=== PATIENT | female | born 1950 | race Caucasian/White ===

== ENCOUNTER 2016-11-13 17:25 | Inpatient (IN) | payer MEDICARE, MEDICAID ==
--- NOTE | 2016-11-13 18:06 | ED Physician Chart ---
Chief Complaint/HPI - Patient Information Date Seen:: 11/13/16 Time Seen:: 17:50 Chief Complaint:: abdominal pain and vomiting History of Present Illness:: patient developed mid abdominal pain this pm and vomited three times. No diarrhea. Also complains of shortness of breath and chest burning sensation. Historian:: Patient, EMS Review of Systems - Review of Systems General/Constitutional: No fever, No chills Skin: No skin lesions Head: No headache Eyes: No loss of vision ENT: No earache Neck: No neck pain Cardio Vascular: Chest pain Pulmonary: SOB GI: Nausea, Vomiting, Pain G/U: No dysuria Musculoskeletal: No bone or joint pain Endocrine: No polyuria Psychiatric: Prior psych history Past Medical History - Past Medical History Past Medical History: PUD/GERD, Other (chronic pain syndrome; PUD) Family History: HTN Social History: Care Facility Surgical History: Appendectomy, Cholecystectomy, Hysterectomy, Hernia, other Psychiatricy History: None Medication: Reviewed Family Medical History - Family Member Mother Hx Family Hypertension: Yes Physical Exam - Physical Examination General/Constitutional: No distress Head: Atraumatic Eyes: Lids, conjuctiva normal, PERRL Skin: Nl inspection, No rash ENMT: External ears, nose nl, TM canals nl Neck: No nuchal rigidity Respiratory: Nl effort/Exclusion, Clear to Auscultation, No Wheeze/Rhonchi/Rales Cardio Vascular: RRR GI: No organomegaly, No hernia, Normal BS's Other GI comments:: upper abdominal tenderness with rebound : No CVA tenderness Extremities: Normal digits & nails Neuro/Psych: Alert/oriented Misc: Normal back Labs/Radiology/EKG Results - Lab Results Results: Laboratory Results - last 24 hr 11/13/16 11/13/16 11/13/16 18:12 18:25 18:25 WBC RBC Hgb Hct MCV MCH MCHC Differential RDW Plt Count MPV Neutrophils % Lymphocytes % Monocytes % Eosinophils % Basophils % Sodium 135 L Potassium 4.3 Chloride 108 H Carbon Dioxide 24.5 Anion Gap 6.8 L BUN 20 Creatinine 0.7 Est GFR ( Amer) > 60.0 Est GFR (Non-Af Amer) > 60.0 BUN/Creatinine Ratio 28.6 Glucose 112 H Calcium 9.7 Troponin I < 0.01 L Lipase 33 Urine Source RANDOM Urine Color YELLOW Urine Clarity CLEAR Urine pH 7.0 Ur Specific [place] 1.020 Urine Protein NEGATIVE Urine Glucose (UA) NEGATIVE Urine Ketones NEGATIVE Urine Blood NEGATIVE Urine Nitrate NEGATIVE Urine Bilirubin NEGATIVE Urine Urobilinogen 0.2 Ur Leukocyte Esterase NEGATIVE Urine RBC NONE SEEN Urine WBC NONE SEEN Ur Epithelial Cells NONE SEEN Urine Bacteria NONE SEEN 11/13/16 19:27 WBC 7.8 RBC 4.29 Hgb 11.8 Hct 34.4 L MCV 80.2 L MCH 27.5 MCHC Differential 34.3 RDW 14.5 Plt Count 251 MPV 7.2 Neutrophils % 74.0 Lymphocytes % 17.6 L Monocytes % 6.0 Eosinophils % 1.8 Basophils % 0.6 Sodium Potassium Chloride Carbon Dioxide Anion Gap BUN Creatinine Est GFR ( Amer) Est GFR (Non-Af Amer) BUN/Creatinine Ratio Glucose Calcium Troponin I Lipase Urine Source Urine Color Urine Clarity Urine pH Ur Specific [place] Urine Protein Urine Glucose (UA) Urine Ketones Urine Blood Urine Nitrate Urine Bilirubin Urine Urobilinogen Ur Leukocyte Esterase Urine RBC Urine WBC Ur Epithelial Cells Urine Bacteria - Radiology Results Results: CXR: elevation of left hemidiaphragm; no infiltrate; CT abdomen and pelvis: negative Assessment - Assessment General Assessment: on re-examination still had upper abdominal tenderness with rebound ED Septic Shock - . Is Septic Shock (SBP<90, OR Lactate>4 mmol\L) present?: No Reassessment (Disposition) - Reassessment Reassessment Condition:: Unchanged - Diagnosis Diagnosis:: Gastritis - Patient Disposition Admitted to:: Med/Surg Spoke to:: Bandar Cormier Admitting Medical Physician:: Bandar Cormier
[2016-11-13 18:48] LABS: ANION GAP 6.8 (7.0-16.0); BUN - UREA NITROGEN 20 mg/dL (7-25); BUN/CREATININE RATIO 28.6; CALCIUM SERUM 9.7 mg/dL (8.6-10.3); CARBON DIOXIDE 24.5 mEq/L (21.0-31.0); CHLORIDE 108 mEq/L (98-107); CREATININE - SERUM 0.7 mg/dL (0.6-1.2); GLUCOSE 112 mg/dL (70-105); LIPASE 33 U/L (11-82); POTASSIUM SERUM 4.3 mEq/L (3.5-5.1); SODIUM SERUM 135 mEq/L (136-145)
[2016-11-13 19:31] LABS: % BASOPHILS 0.6 % (0.0-2.0); % EOSINOPHILS 1.8 % (0.0-5.0); % LYMPHOCYTES 17.6 % (20.0-50.0); HEMATOCRIT 34.4 % (35.0-45.0); HEMOGLOBIN 11.8 gm/dL (11.7-15.5); MEAN CELL VOLUME 80.2 fl (81-100); MEAN CORPUSCULAR HEMOGLOBIN 27.5 pg (27.0-31.0); MEAN CORPUSCULAR HGB CONC 34.3 pg (28.0-36.0); MEAN PLATELET VOLUME 7.2 fl; NEUTROPHILE ABSOLUTE 5.8 Th/cmm (1.8-8.0); PLATELET COUNT 251 Th/cmm (150-400); RED BLOOD COUNT 4.29 Mil/cmm (3.80-5.10); RED CELL DISTRIBUTION WIDTH 14.5 % (11.5-20.0); WHITE BLOOD COUNT 7.8 Th/cmm (4.8-10.8)
[2016-11-13 19:40] LABS: URINE BACTERIA NONE SEEN /hpf (NONE SEEN); URINE BILIRUBIN NEGATIVE (NEGATIVE); URINE BLOOD NEGATIVE (NEGATIVE); URINE COLOR YELLOW; URINE EPITHELIAL CELLS NONE SEEN /lpf (FEW); URINE GLUCOSE (UA) NEGATIVE (NEGATIVE); URINE KETONE NEGATIVE (NEGATIVE); URINE PROTEIN NEGATIVE (NEGATIVE); URINE RBC NONE SEEN /hpf (0-5); URINE UROBILINOGEN 0.2 E.U./dL (0.2 - 1.0); URINE WBC NONE SEEN /hpf (0-5)
[2016-11-13] MEDS ORDERED: Morphine Sulfate 2 mg/mL 1mL Syr ONE (21:33)
[2016-11-13] MEDS: Morphine Sulfate 2 mg/mL 1mL Syr IVP PRN (21:37)
--- NOTE | 2016-11-13 22:24 | Admit Criteria Form ---
Admit Criteria Forms - Admit Criteria Diagnosis: GASTRITIS AND DUODENITIS Clinical Indications for Admission to Inpatient Care (Place 'X' for any and all applicable criteria): Admission is indicated for ANY ONE of the following (1)(2)(3): [X]I. Inpatient admission required rather than observation care (Also use Gastritis and Duodenitis: Observation Care as appropriate) because of ANY ONE of the following: [ ]a) Caustic ingestion related injury that requires acute inpatient care (5) [X]b) Vomiting that is severe or persistent (6) [ ]c) Volume depletion that is severe or persistent [X]d) Severe pain requiring acute inpatient management [ ]e) Severe electrolyte abnormalities requiring inpatient care [ ]f) High fever or infection requiring inpatient admission indicated by ANY ONE of the following(7)(8): [ ]A. Appropriate outpatient or observation care antimicrobial treatment unavailable, not effective, not feasible [ ]B. Temp. > 104.9 F (oral) [ ]C. Temp. >103.1F (oral) or < 96.8 F (rectal) that does not respond to all emergency treatment measures [ ]D. Documented bacteremia [ ]g) IV fluid to replace significant ongoing losses (greater than 3 L/m2 per day)(12)(13) [ ]h) Parenteral nutrition regimen that must be implemented on inpatient basis [ ]i) Other condition, treatment or monitoring requiring inpatient admission [ ]II. Hemodynamic instability [ ]III. Suspected gastric outlet obstruction [ ]IV. Suspected perforation of viscus [ ]V. Peritoneal signs Extended stay beyond goal length of stay may be needed for (2)(3): [ ]a) Hemorrhagic gastritis or duodenitis (Also use Gastrointestinal Bleeding, Upper care as appropriate) (20) [ ]b) Severe caustic injury [ ]c) Gastroparesis(23) [ ]d) Surgical intervention (22) [ ]e) Older patient (patient older than 65 years of age) The original [facility] content created by [employer] has been revised. The portions of the content which have been revised are identified through the use of italic text or in bold, and [facility] has neither reviewed nor approved the modified material.All other unmodified content is copyright [facility]. Please see references footnoted in the original [facility] edition 2016 Admit Criteria Met?: Yes
[2016-11-14] MEDS ORDERED: Maalox 30 mL Cup PO PRN ×2 (00:17→00:20)
[2016-11-14] MEDS ORDERED: Magnesium Hydroxide (MOM) 30 mL UDC PO PRN (00:17)
[2016-11-14] MEDS ORDERED: Lactulose 10 Gm/15 mL 30mL UDC PO PRN (00:17)
[2016-11-14] MEDS: Morphine Sulfate 2 mg/mL 1mL Syr IVP PRN ×4 (05:35→20:37)
[2016-11-14 07:05] LABS: % BASOPHILS 0.3 % (0.0-2.0); % EOSINOPHILS 2.5 % (0.0-5.0); % LYMPHOCYTES 21.3 % (20.0-50.0); % MONOCYTES 7.1 % (2.0-10.0); % NEUTROPHILS 68.8 % (40.0-80.0); HEMATOCRIT 33.5 % (35.0-45.0); HEMOGLOBIN 11.3 gm/dL (11.7-15.5); MEAN CELL VOLUME 80.8 fl (81-100); MEAN CORPUSCULAR HEMOGLOBIN 27.1 pg (27.0-31.0); MEAN CORPUSCULAR HGB CONC 33.6 pg (28.0-36.0); MEAN PLATELET VOLUME 7.4 fl; NEUTROPHILE ABSOLUTE 4.5 Th/cmm (1.8-8.0); PLATELET COUNT 232 Th/cmm (150-400); RED BLOOD COUNT 4.15 Mil/cmm (3.80-5.10); RED CELL DISTRIBUTION WIDTH 14.4 % (11.5-20.0); WHITE BLOOD COUNT 6.6 Th/cmm (4.8-10.8)
[2016-11-14 07:16] LABS: ALB/GLOB RATIO 1.2 (1.0-1.8); ALKALINE PHOSPHATASE 88 U/L (34-104); ANION GAP 12.7 (7.0-16.0); BILIRUBIN,TOTAL 0.2 mg/dL (0.3-1.0); BUN - UREA NITROGEN 18 mg/dL (7-25); BUN/CREATININE RATIO 25.7; CARBON DIOXIDE 30.2 mEq/L (21.0-31.0); CHLORIDE 103 mEq/L (98-107); CREATININE - SERUM 0.7 mg/dL (0.6-1.2); GLUCOSE 106 mg/dL (70-105); POTASSIUM SERUM 3.9 mEq/L (3.5-5.1); SGOT 13 U/L (13-39); SGPT/ALT 17 U/L (7-52); SODIUM SERUM 142 mEq/L (136-145)
[2016-11-14 09:26] LABS: TSH 4.28 uIU/ml (0.34-5.60)
[2016-11-14] MEDS: Albuterol Nebulizer 2.5mg/3mL IH SCH ×3 (09:54→17:10)
[2016-11-14] MEDS: Ipratropium Neb 0.5 mg/2.5 mL UD IH SCH ×3 (09:54→17:11)
[2016-11-14] MEDS ORDERED: Pneumococcal Vaccine 0.5 mL Vial IM ONE (11:00)
[2016-11-14 11:20] LABS: INR 0.98 (0.5-1.4); PROTHROMBIN TIME (TEST) 9.7 SECONDS (9.5-11.5)
--- NOTE | 2016-11-14 11:41 | Diagnostic Imaging Report ---
CT scan abdomen and pelvis without intravenous contrast HISTORY: Pain Total DLP equals 739 CTDI equals 14.0 Axial sections were obtained from the xiphoid process down to the pubic symphysis. The liver exhibits a normal size and contour. Surgical clips are seen in the jose hepatis region consistent with prior cholecystectomy. Pneumobilia is seen. Findings consistent with surgical sequelae. The spleen is somewhat generous in size. No focal abdomen is seen within the pancreas. No focal renal lesions. No hydronephrosis. Stool-filled mildly dilated ascending colon is noted. No abnormal masses or fluid collections seen within the pelvis. Artifact associated with surgical clips noted in the right and left iliac regions of the pelvis. IMPRESSION: 1. No acute abnormalities 2. Mildly distended stool-filled ascending colon 3. Findings of a prior cholecystectomy and additional surgical changes.
--- NOTE | 2016-11-14 11:53 | Diagnostic Imaging Report ---
Portable chest x-ray HISTORY: Pain The heart is enlarged. No focal pulmonary processes. No hilar or mediastinal abnormalities. IMPRESSION: 1. Cardiomegaly 2. No acute focal pulmonary processes
[2016-11-14] MEDS: D5-0.45NS 1,000 ML IV SCH ×2 (16:03)
--- NOTE | 2016-11-14 16:52 | History & Physical ---
CHIEF COMPLAINT: Abdominal pain and vomiting. HISTORY OF PRESENT ILLNESS: This is a 66-year-old female with history of GERD, obesity, anemia, depression, and psych disorder was admitted from nursing facility secondary to abdominal pain started about 3 days ago. It started about 2 months ago, worse in the last 3 days. The patient also related some vomiting. The patient evaluated in the ER and then admitted for further management. PAST MEDICAL HISTORY: As mentioned in history present illness. PAST SURGICAL HISTORY: Status post gallbladder, appendix, tonsils and hernia surgery. ALLERGIES: TYLENOL, ____ PENICILLIN, ____. MEDICATIONS: The patient on albuterol, Atrovent, Motrin, Zyprexa, Zofran, ____ Zoloft. FAMILY HISTORY: Noncontributory. SOCIAL HISTORY: The patient ____, no alcohol, no intravenous drug use. The patient , no children. REVIEW OF SYSTEMS: GENERAL: Complains of not feeling well. HEENT: No blurred vision, pain. LUNGS: ____ COPD or asthma. HEART: Denies hypertension or coronary artery disease. ABDOMEN: As mentioned in history present illness. NEUROLOGIC: No headache or seizures. PSYCHIATRIC: As stated above. PHYSICAL EXAMINATION: VITAL SIGNS: Blood pressure 106/59, respirations 17, pulse 82, temperature is ____. GENERAL: Elderly female, morbidly obese. NECK: Supple. No mass. LUNGS: Equal breath sounds, few rhonchi. HEART: Regular rhythm. No appreciable murmurs. ABDOMEN: Soft, globular, ____. Nontender on the deep palpation. NEUROLOGIC: Limited. Moving 4 extremities. Gait not ____. LABORATORY DATA: WBC 6.6, hemoglobin 11.3, platelets ____. Sodium 134, potassium 4.3, BUN 20, creatinine 0.7, glucose 112. ____, albumin 3.6 and urine negative. ASSESSMENT AND PLAN: Intractable vomiting, abdominal pain, anemia, gastroesophageal reflux disease, obesity, gait instability, schizoaffective disorder, low albumin, hypokalemia. We will continue patient on IV hydration. We will correct electrolyte abnormalities. Continue proton pump inhibitor. ID has been consulted. We will provide the patient adequate pain control. We will review the patient's CT of the abdomen. We will continue to follow. JOB# [id number]
[2016-11-14] MEDS ORDERED: Lidocaine 2% Gel 5 mL TP ONE (17:40)
--- NOTE | 2016-11-14 18:43 | Operative Report ---
PROCEDURE: Esophagogastroduodenoscopy with biopsy. PREPROCEDURE DIAGNOSIS: Abdominal pain with chest pain. POSTPROCEDURE DIAGNOSES: 1. Mild antral gastritis, status post biopsy and CLOtest. 2. Normal duodenum, status post biopsies, rule out celiac disease. INDICATION: A 66-year-old obese female admitted for atypical chest pain and epigastric pain, undergoing an upper endoscopy for further evaluation. CONSENT: Informed consent was obtained from the patient prior to procedure after explanation of risks, benefit and alternative including but not limited to infection, bleeding, perforation and . SEDATION: Monitored anesthesia care per Dr. Zhang. DESCRIPTION OF PROCEDURE AND FINDINGS: The patient was placed as an inpatient in the GI Suite of [facility]. The patient was kept in a left lateral decubitus position. Adequate sedation was achieved with above medications. An Olympus diagnostic upper endoscope was advanced via the patient's mouth and into the esophagus. The esophagus appeared normal with no evidence of esophagitis, stricture or mass lesions. The Z-line was normal appearing at 36 cm from the gums. Retroflexion in the stomach revealed no GE junction masses or varices. No hiatal hernia was identified. Mild gastritis with some bile reflux was identified in the antrum. Biopsies were obtained from antrum and mid body, submitted for CLOtest as well as pathology. The pyloric channel and duodenum up to this portion appeared normal. Random biopsies were obtained from second portion to rule out celiac disease. The scope was then withdrawn from the patient. The patient tolerated the procedure well, no complications are anticipated. RECOMMENDATIONS: 1. Follow up biopsy results. 2. Protonix and Carafate. 3. Antiemetics as needed. 4. Diet as tolerated. Thank you, Dr. Bandar Cormier, for involving us in the care of your patient. If you have any further questions, please call us. JOB# [id number]
--- NOTE | 2016-11-14 20:48 | Consultation ---
TYPE OF CONSULTATION: GASTROENTEROLOGY REQUESTING PHYSICIAN: Bandar Cormier M.D. REASON FOR CONSULTATION: Abdominal pain. HISTORY OF PRESENT ILLNESS: This is a 66-year-old obese female with previous cholecystectomy, self-proclaimed IBS/irritable bowel syndrome, obesity, mild anemia, depression, and previous endoscopic workup with endoscopy and colonoscopy per her 2 years ago showing IBS. The patient was admitted for a few-day history of epigastric and atypical chest pain. PAST MEDICAL HISTORY: As above. MEDICATIONS: Maalox, albuterol, Klonopin, heparin subcutaneously, Motrin, Atrovent, lactulose p.r.n., milk of magnesia p.r.n., morphine p.r.n., Nitrostat p.r.n., Zyprexa, Zofran, Protonix, Zoloft, and Ambien. ALLERGIES: ACETAMINOPHEN, HALDOL, PENICILLIN AND COMPAZINE. SOCIAL HISTORY: No known tobacco or alcohol or drugs. FAMILY HISTORY: Noncontributory. REVIEW OF SYSTEMS: A comprehensive 12-point review of systems was conducted and is only positive for those signs or symptoms present in the history of present illness. PHYSICAL EXAMINATION: VITAL SIGNS: Temperature 98.3, blood pressure is 117/64, pulse of 81, respirations 20, and O2 sat is 97%. GENERAL: The patient is well-developed, well-nourished female in no acute distress. HEENT: Sclerae are anicteric. Oropharynx is clear. CARDIOVASCULAR: Regular rate and rhythm. LUNGS: Clear to auscultation bilaterally. ABDOMEN: Soft. Mild epigastric tenderness to palpation without rebound or guarding. No hepatosplenomegaly is appreciated. EXTREMITIES: No clubbing, cyanosis, or edema. RECTAL: Deferred. LABORATORY DATA AND IMAGING: WBC 6.6, hemoglobin 11.3, and platelet count is 232,000. Chemistries including liver enzymes and lipase are normal. Urinalysis is clear. CT of the abdomen and pelvis done yesterday showed no acute abnormalities, mildly distended stool-filled ascending colon, and previous cholecystectomy. ASSESSMENT: 1. Epigastric abdominal pain and atypical chest pain, rule out gastroesophageal reflux disease, peptic ulcer disease, gastritis versus less likely constipation or colitis. 2. History of irritable bowel syndrome. 3. History of cholecystectomy. 4. History of obesity. 5. Mild anemia. 6. History of depression. 7. History of endoscopic workup 2 years ago. RECOMMENDATIONS: 1. Upper endoscopy to follow. 2. Protonix. 3. Antiemetics. 4. Diet as tolerated. Thank you, Dr. Bandar Cormier for involving us in the care of your patient. If you have any further questions, please call us. JOB# [id number] [id number]
[2016-11-15] MEDS: Morphine Sulfate 2 mg/mL 1mL Syr IVP PRN ×5 (01:55→20:18)
[2016-11-15] MEDS: D5-0.45NS 1,000 ML IV SCH ×2 (05:34→21:30)
[2016-11-15 07:15] LABS: % LYMPHOCYTES 18.2 % (20.0-50.0); % MONOCYTES 7.8 % (2.0-10.0); HEMATOCRIT 31.9 % (35.0-45.0); HEMOGLOBIN 10.8 gm/dL (11.7-15.5); MEAN CELL VOLUME 80.3 fl (81-100); MEAN CORPUSCULAR HEMOGLOBIN 27.2 pg (27.0-31.0); MEAN CORPUSCULAR HGB CONC 33.9 pg (28.0-36.0); MEAN PLATELET VOLUME 6.9 fl; NEUTROPHILE ABSOLUTE 4.4 Th/cmm (1.8-8.0); PLATELET COUNT 209 Th/cmm (150-400); RED BLOOD COUNT 3.97 Mil/cmm (3.80-5.10); RED CELL DISTRIBUTION WIDTH 14.5 % (11.5-20.0); WHITE BLOOD COUNT 6.3 Th/cmm (4.8-10.8)
[2016-11-15 07:45] LABS: ALB/GLOB RATIO 1.2 (1.0-1.8); ALKALINE PHOSPHATASE 83 U/L (34-104); ANION GAP 6.1 (7.0-16.0); BILIRUBIN,TOTAL 0.3 mg/dL (0.3-1.0); BUN - UREA NITROGEN 17 mg/dL (7-25); BUN/CREATININE RATIO 24.3; CALCIUM SERUM 8.6 mg/dL (8.6-10.3); CARBON DIOXIDE 29.8 mEq/L (21.0-31.0); CHLORIDE 107 mEq/L (98-107); CREATININE - SERUM 0.7 mg/dL (0.6-1.2); GLUCOSE 107 mg/dL (70-105); MAGNESIUM 2.2 mg/dL (1.9-2.7); POTASSIUM SERUM 3.9 mEq/L (3.5-5.1); SGOT 12 U/L (13-39); SGPT/ALT 16 U/L (7-52); SODIUM SERUM 139 mEq/L (136-145)
--- NOTE | 2016-11-15 08:22 | General Progress Note ---
Subjective - Review of Systems Service Date: 11/15/16 Subjective: STILL SOME ABD PAIN. CHRISTIAN SOME ORAL DIET. Objective - Results Result Diagrams: 11/15/16 06:58 11/15/16 06:58 Recent Labs: Laboratory Last Values WBC 6.3 Th/cmm (4.8-10.8) 11/15/16 06:58 RBC 3.97 Mil/cmm (3.80-5.10) 11/15/16 06:58 Hgb 10.8 gm/dL (11.7-15.5) L 11/15/16 06:58 Hct 31.9 % (35.0-45.0) L 11/15/16 06:58 MCV 80.3 fl (81-100) L 11/15/16 06:58 MCH 27.2 pg (27.0-31.0) 11/15/16 06:58 MCHC Differential 33.9 pg (28.0-36.0) 11/15/16 06:58 RDW 14.5 % (11.5-20.0) 11/15/16 06:58 Plt Count 209 Th/cmm (150-400) 11/15/16 06:58 MPV 6.9 fl 11/15/16 06:58 Neutrophils % 70.0 % (40.0-80.0) 11/15/16 06:58 Lymphocytes % 18.2 % (20.0-50.0) L 11/15/16 06:58 Monocytes % 7.8 % (2.0-10.0) 11/15/16 06:58 Eosinophils % 3.0 % (0.0-5.0) 11/15/16 06:58 Basophils % 1.0 % (0.0-2.0) 11/15/16 06:58 PT 9.7 SECONDS (9.5-11.5) 11/14/16 06:15 INR 0.98 (0.5-1.4) 11/14/16 06:15 Sodium 139 mEq/L (136-145) 11/15/16 06:58 Potassium 3.9 mEq/L (3.5-5.1) 11/15/16 06:58 Chloride 107 mEq/L (98-107) 11/15/16 06:58 Carbon Dioxide 29.8 mEq/L (21.0-31.0) 11/15/16 06:58 Anion Gap 6.1 (7.0-16.0) L 11/15/16 06:58 BUN 17 mg/dL (7-25) 11/15/16 06:58 Creatinine 0.7 mg/dL (0.6-1.2) 11/15/16 06:58 Est GFR ( Amer) > 60.0 ml/min (>90) 11/15/16 06:58 Est GFR (Non-Af Amer) > 60.0 ml/min 11/15/16 06:58 BUN/Creatinine Ratio 24.3 11/15/16 06:58 Glucose 107 mg/dL (70-105) H 11/15/16 06:58 Calcium 8.6 mg/dL (8.6-10.3) 11/15/16 06:58 Magnesium 2.2 mg/dL (1.9-2.7) 11/15/16 06:58 Total Bilirubin 0.3 mg/dL (0.3-1.0) 11/15/16 06:58 AST 12 U/L (13-39) L 11/15/16 06:58 ALT 16 U/L (7-52) 11/15/16 06:58 Alkaline Phosphatase 83 U/L (34-104) 11/15/16 06:58 Ammonia 62 umol/L (16-53) H 11/15/16 06:58 Troponin I < 0.01 ng/mL (0.01-0.05) L 11/13/16 18:25 Total Protein 6.2 gm/dL (6.0-8.3) 11/15/16 06:58 Albumin 3.4 gm/dL (3.7-5.3) L 11/15/16 06:58 Globulin 2.8 gm/dL 11/15/16 06:58 Albumin/Globulin Ratio 1.2 (1.0-1.8) 11/15/16 06:58 Lipase 33 U/L (11-82) 11/13/16 18:25 TSH 4.28 uIU/ml (0.34-5.60) 11/14/16 06:15 Urine Source RANDOM 11/13/16 18:12 Urine Color YELLOW 11/13/16 18:12 Urine Clarity CLEAR (CLEAR) 11/13/16 18:12 Urine pH 7.0 11/13/16 18:12 Ur Specific [place] 1.020 (1.005-1.030) 11/13/16 18:12 Urine Protein NEGATIVE mg/dL (NEGATIVE) 11/13/16 18:12 Urine Glucose (UA) NEGATIVE mg/dL (NEGATIVE) 11/13/16 18:12 Urine Ketones NEGATIVE mg/dL (NEGATIVE) 11/13/16 18:12 Urine Blood NEGATIVE (NEGATIVE) 11/13/16 18:12 Urine Nitrate NEGATIVE (NEGATIVE) 11/13/16 18:12 Urine Bilirubin NEGATIVE (NEGATIVE) 11/13/16 18:12 Urine Urobilinogen 0.2 E.U./dL (0.2 - 1.0) 11/13/16 18:12 Ur Leukocyte Esterase NEGATIVE (NEGATIVE) 11/13/16 18:12 Urine RBC NONE SEEN /hpf (0-5) 11/13/16 18:12 Urine WBC NONE SEEN /hpf (0-5) 11/13/16 18:12 Ur Epithelial Cells NONE SEEN /lpf (FEW) 11/13/16 18:12 Urine Bacteria NONE SEEN /hpf (NONE SEEN) 11/13/16 18:12 - Physical Exam Vitals and I&O: Vital Signs Temp 97.6 F 11/15/16 04:00 Pulse 73 11/15/16 04:00 Resp 18 11/15/16 04:00 BP 103/64 11/15/16 04:00 Pulse Ox 96 11/15/16 04:00 Intake & Output 11/14/16 11/15/16 11/15/16 18:59 06:59 18:59 Intake Total 1000 1000 Balance 1000 1000 Intake: Intake, IV Amount 1000 1000 D5-0.45NS 1,000 ml @ 100 1000 1000 mls/hr IV .Q10H [facility] Rx#: [id number] Active Medications: Current Medications Al Hydrox/Mg Hydrox/Simethicone (Maalox) 30 ml PO Q6HR PRN PRN Reason: Constipation Stop: 01/13/17 00:19 Albuterol Sulfate (Albuterol 2.5mg/3ml Neb Ud) 2.5 mg IH QID BRENDA Stop: 01/13/17 08:59 Last Admin: 11/14/16 17:10 Dose: 2.5 mg Clonazepam (Klonopin) 1 mg PO BID BRENDA PRN Reason: Protocol Stop: 01/13/17 08:59 Last Admin: 11/14/16 17:42 Dose: Not Given Heparin Sodium (Porcine) (Heparin) 5,000 units SUBQ Q12HR [facility] Stop: 01/13/17 08:59 Last Admin: 11/14/16 21:06 Dose: Not Given Dextrose/Sodium Chloride (D5-0.45ns) 1,000 mls @ 100 mls/hr IV .Q10H [facility] Stop: 01/13/17 00:29 Last Admin: 11/15/16 05:34 Dose: 100 mls/hr Ibuprofen (Motrin) 600 mg PO Q8HR [facility] Stop: 01/13/17 04:59 Last Admin: 11/15/16 05:43 Dose: 600 mg Ipratropium [place] (Atrovent Neb 0.5mg/2.5ml) 0.5 mg IH QID [facility] Stop: 01/13/17 08:59 Last Admin: 11/14/16 17:11 Dose: 0.5 mg Lactulose (Cephulac) 20 gm PO DAILY PRN PRN Reason: Constipation Stop: 01/13/17 00:16 Magnesium Hydroxide (Milk Of Magnesia) 30 ml PO HS PRN PRN Reason: Constipation Stop: 01/13/17 00:16 Morphine Sulfate (Morphine) 2 mg IVP Q4HR PRN PRN Reason: Pain (Severe) Stop: 01/12/17 21:26 Last Admin: 11/15/16 06:19 Dose: 2 mg Nitroglycerin (Nitrostat) 0.4 mg SL Q5MIN PRN PRN Reason: Chest Pain Stop: 01/13/17 11:55 Last Admin: 11/14/16 12:07 Dose: 0.4 mg Olanzapine (Zyprexa) 10 mg PO HS BRENDA PRN Reason: Protocol Stop: 01/13/17 20:59 Last Admin: 11/14/16 22:42 Dose: 10 mg Ondansetron HCl (Zofran) 4 mg IV Q8H PRN PRN Reason: Nausea / Vomiting Stop: 01/13/17 00:19 Last Admin: 11/14/16 15:09 Dose: 4 mg Pantoprazole Sodium (Protonix) 40 mg IVP BID [facility] Stop: 01/13/17 08:59 Last Admin: 11/14/16 17:42 Dose: Not Given Sertraline HCl (Zoloft) 50 mg PO DAILY BRENDA PRN Reason: Protocol Stop: 01/13/17 08:59 Last Admin: 11/14/16 09:45 Dose: Not Given Sucralfate (Carafate) 1 gm PO BID BRENDA Stop: 01/13/17 18:14 Last Admin: 11/14/16 19:37 Dose: 1 gm Zolpidem Tartrate (Ambien) 10 mg PO HS PRN PRN Reason: Insomnia Stop: 01/12/17 23:20 Last Admin: 11/14/16 21:09 Dose: 10 mg General: Alert HEENT: Atraumatic Neck: Supple Cardiovascular: Regular rate Lungs: Clear to auscultation Abdomen: Bowel sounds, Soft, Tender Assessment/Plan - Assessment Assessment: 1. ABD PAIN - R/O GASTRITIS VS. IBS VS. OTHER. 2. EGD SHOWED BILE GASTROPATHY. 3. S/P SYL. 4. OBESITY. - Plan Plan: 1. PROTONIX. 2. CARAFATE. 3. F/U BX RESULTS. 4. DIET CHRISTIAN.
[2016-11-15 13:09] LABS: FOLIC ACID 16.8 ng/mL (>3.0)
--- NOTE | 2016-11-15 15:22 | Internal Medicine Prog Note ---
Internal Medicine Subjective - Subjective Service Date: 11/15/16 (S/P EGD , patient c/o sob, lungs upon examination clear. denies any cough) Patient seen and examined:: with staff Patient is:: awake Per staff patient is:: no adverse event Internal Medicine Objective - Results Result Diagrams: 11/15/16 06:58 11/15/16 06:58 Recent Labs: Laboratory Last Values WBC 6.3 Th/cmm (4.8-10.8) 11/15/16 06:58 RBC 3.97 Mil/cmm (3.80-5.10) 11/15/16 06:58 Hgb 10.8 gm/dL (11.7-15.5) L 11/15/16 06:58 Hct 31.9 % (35.0-45.0) L 11/15/16 06:58 MCV 80.3 fl (81-100) L 11/15/16 06:58 MCH 27.2 pg (27.0-31.0) 11/15/16 06:58 MCHC Differential 33.9 pg (28.0-36.0) 11/15/16 06:58 RDW 14.5 % (11.5-20.0) 11/15/16 06:58 Plt Count 209 Th/cmm (150-400) 11/15/16 06:58 MPV 6.9 fl 11/15/16 06:58 Neutrophils % 70.0 % (40.0-80.0) 11/15/16 06:58 Lymphocytes % 18.2 % (20.0-50.0) L 11/15/16 06:58 Monocytes % 7.8 % (2.0-10.0) 11/15/16 06:58 Eosinophils % 3.0 % (0.0-5.0) 11/15/16 06:58 Basophils % 1.0 % (0.0-2.0) 11/15/16 06:58 PT 9.7 SECONDS (9.5-11.5) 11/14/16 06:15 INR 0.98 (0.5-1.4) 11/14/16 06:15 Sodium 139 mEq/L (136-145) 11/15/16 06:58 Potassium 3.9 mEq/L (3.5-5.1) 11/15/16 06:58 Chloride 107 mEq/L (98-107) 11/15/16 06:58 Carbon Dioxide 29.8 mEq/L (21.0-31.0) 11/15/16 06:58 Anion Gap 6.1 (7.0-16.0) L 11/15/16 06:58 BUN 17 mg/dL (7-25) 11/15/16 06:58 Creatinine 0.7 mg/dL (0.6-1.2) 11/15/16 06:58 Est GFR ( Amer) > 60.0 ml/min (>90) 11/15/16 06:58 Est GFR (Non-Af Amer) > 60.0 ml/min 11/15/16 06:58 BUN/Creatinine Ratio 24.3 11/15/16 06:58 Glucose 107 mg/dL (70-105) H 11/15/16 06:58 Calcium 8.6 mg/dL (8.6-10.3) 11/15/16 06:58 Magnesium 2.2 mg/dL (1.9-2.7) 11/15/16 06:58 Total Bilirubin 0.3 mg/dL (0.3-1.0) 11/15/16 06:58 AST 12 U/L (13-39) L 11/15/16 06:58 ALT 16 U/L (7-52) 11/15/16 06:58 Alkaline Phosphatase 83 U/L (34-104) 11/15/16 06:58 Ammonia 62 umol/L (16-53) H 11/15/16 06:58 Troponin I < 0.01 ng/mL (0.01-0.05) L 11/13/16 18:25 Total Protein 6.2 gm/dL (6.0-8.3) 11/15/16 06:58 Albumin 3.4 gm/dL (3.7-5.3) L 11/15/16 06:58 Globulin 2.8 gm/dL 11/15/16 06:58 Albumin/Globulin Ratio 1.2 (1.0-1.8) 11/15/16 06:58 Lipase 33 U/L (11-82) 11/13/16 18:25 Vitamin B12 489 pg/mL (211-946) 11/14/16 06:15 Folic Acid 16.8 ng/mL (>3.0) 11/14/16 06:15 TSH 4.28 uIU/ml (0.34-5.60) 11/14/16 06:15 Urine Source RANDOM 11/13/16 18:12 Urine Color YELLOW 11/13/16 18:12 Urine Clarity CLEAR (CLEAR) 11/13/16 18:12 Urine pH 7.0 11/13/16 18:12 Ur Specific [place] 1.020 (1.005-1.030) 11/13/16 18:12 Urine Protein NEGATIVE mg/dL (NEGATIVE) 11/13/16 18:12 Urine Glucose (UA) NEGATIVE mg/dL (NEGATIVE) 11/13/16 18:12 Urine Ketones NEGATIVE mg/dL (NEGATIVE) 11/13/16 18:12 Urine Blood NEGATIVE (NEGATIVE) 11/13/16 18:12 Urine Nitrate NEGATIVE (NEGATIVE) 11/13/16 18:12 Urine Bilirubin NEGATIVE (NEGATIVE) 11/13/16 18:12 Urine Urobilinogen 0.2 E.U./dL (0.2 - 1.0) 11/13/16 18:12 Ur Leukocyte Esterase NEGATIVE (NEGATIVE) 11/13/16 18:12 Urine RBC NONE SEEN /hpf (0-5) 11/13/16 18:12 Urine WBC NONE SEEN /hpf (0-5) 11/13/16 18:12 Ur Epithelial Cells NONE SEEN /lpf (FEW) 11/13/16 18:12 Urine Bacteria NONE SEEN /hpf (NONE SEEN) 11/13/16 18:12 - Physical Exam Vitals and I&O: Vital Signs Temp 98.3 F 11/15/16 12:40 Pulse 81 11/15/16 12:40 Resp 18 11/15/16 15:00 BP 84/33 11/15/16 12:40 Pulse Ox 93 11/15/16 12:40 Intake & Output 11/14/16 11/15/16 11/15/16 18:59 06:59 18:59 Intake Total 1000 1000 Balance 1000 1000 Intake: Intake, IV Amount 1000 1000 D5-0.45NS 1,000 ml @ 100 1000 1000 mls/hr IV .Q10H [facility] Rx#: [id number] Active Medications: Current Medications Al Hydrox/Mg Hydrox/Simethicone (Maalox) 30 ml PO Q6HR PRN PRN Reason: Constipation Stop: 01/13/17 00:19 Albuterol Sulfate (Albuterol 2.5mg/3ml Neb Ud) 2.5 mg IH QID [facility] Stop: 01/13/17 08:59 Last Admin: 11/14/16 17:10 Dose: 2.5 mg Clonazepam (Klonopin) 1 mg PO BID [facility] PRN Reason: Protocol Stop: 01/13/17 08:59 Last Admin: 11/15/16 08:41 Dose: 1 mg Heparin Sodium (Porcine) (Heparin) 5,000 units SUBQ Q12HR [facility] Stop: 01/13/17 08:59 Last Admin: 11/15/16 09:16 Dose: Not Given Dextrose/Sodium Chloride (D5-0.45ns) 1,000 mls @ 100 mls/hr IV .Q10H [facility] Stop: 01/13/17 00:29 Last Admin: 11/15/16 05:34 Dose: 100 mls/hr Ibuprofen (Motrin) 600 mg PO Q8HR [facility] Stop: 01/13/17 04:59 Last Admin: 11/15/16 13:52 Dose: 600 mg Ipratropium [place] (Atrovent Neb 0.5mg/2.5ml) 0.5 mg IH QID [facility] Stop: 01/13/17 08:59 Last Admin: 11/14/16 17:11 Dose: 0.5 mg Lactulose (Cephulac) 20 gm PO DAILY PRN PRN Reason: Constipation Stop: 01/13/17 00:16 Magnesium Hydroxide (Milk Of Magnesia) 30 ml PO HS PRN PRN Reason: Constipation Stop: 01/13/17 00:16 Morphine Sulfate (Morphine) 2 mg IVP Q4HR PRN PRN Reason: Pain (Severe) Stop: 01/12/17 21:26 Last Admin: 11/15/16 11:28 Dose: 2 mg Nitroglycerin (Nitrostat) 0.4 mg SL Q5MIN PRN PRN Reason: Chest Pain Stop: 01/13/17 11:55 Last Admin: 11/14/16 12:07 Dose: 0.4 mg Olanzapine (Zyprexa) 10 mg PO HS [facility] PRN Reason: Protocol Stop: 01/13/17 20:59 Last Admin: 11/14/16 22:42 Dose: 10 mg Ondansetron HCl (Zofran) 4 mg IV Q8H PRN PRN Reason: Nausea / Vomiting Stop: 01/13/17 00:19 Last Admin: 11/14/16 15:09 Dose: 4 mg Pantoprazole Sodium (Protonix) 40 mg IVP BID [facility] Stop: 01/13/17 08:59 Last Admin: 11/15/16 08:41 Dose: 40 mg Sertraline HCl (Zoloft) 50 mg PO DAILY [facility] PRN Reason: Protocol Stop: 01/13/17 08:59 Last Admin: 11/15/16 08:41 Dose: 50 mg Sucralfate (Carafate) 1 gm PO BID [facility] Stop: 01/13/17 18:14 Last Admin: 11/15/16 08:41 Dose: 1 gm Zolpidem Tartrate (Ambien) 10 mg PO HS PRN PRN Reason: Insomnia Stop: 01/12/17 23:20 Last Admin: 11/14/16 21:09 Dose: 10 mg General: alert HEENT: NC/AT, PERRLA Neck: Supple Lungs: CTAB Cardiovascular: RRR, Normal S1, Normal S2, without murmur Abdomen: soft non-tender, non-distended Extremities: clear Internal Medicine Assmt/Plan - Assessment Assessment: gastritis intractab;e vomiting abdominal pain anemia gerd obesity gait instability schizoaffective - Plan Plan: ivf for hydration stat cxr stat d-dimer supplemental oxygen
[2016-11-16 07:28] LABS: % BASOPHILS 0.7 % (0.0-2.0); % EOSINOPHILS 2.7 % (0.0-5.0); % LYMPHOCYTES 18.1 % (20.0-50.0); % MONOCYTES 7.2 % (2.0-10.0); % NEUTROPHILS 71.3 % (40.0-80.0); HEMOGLOBIN 11.2 gm/dL (11.7-15.5); MEAN CORPUSCULAR HEMOGLOBIN 27.5 pg (27.0-31.0); MEAN PLATELET VOLUME 7.2 fl; NEUTROPHILE ABSOLUTE 4.5 Th/cmm (1.8-8.0); PLATELET COUNT 210 Th/cmm (150-400); RED BLOOD COUNT 4.07 Mil/cmm (3.80-5.10); WHITE BLOOD COUNT 6.2 Th/cmm (4.8-10.8)
[2016-11-16 07:55] LABS: ANION GAP 7.6 (7.0-16.0); BUN - UREA NITROGEN 16 mg/dL (7-25); BUN/CREATININE RATIO 26.7; CARBON DIOXIDE 25.5 mEq/L (21.0-31.0); CHLORIDE 108 mEq/L (98-107); CREATININE - SERUM 0.6 mg/dL (0.6-1.2); GLUCOSE 102 mg/dL (70-105); POTASSIUM SERUM 4.1 mEq/L (3.5-5.1); SODIUM SERUM 137 mEq/L (136-145)
[2016-11-16] MEDS: Morphine Sulfate 2 mg/mL 1mL Syr IVP PRN ×3 (08:09→20:52)
[2016-11-16] MEDS: Ipratropium Neb 0.5 mg/2.5 mL UD IH SCH ×4 (08:51→20:23)
[2016-11-16] MEDS: Albuterol Nebulizer 2.5mg/3mL IH SCH ×4 (08:51→20:23)
--- NOTE | 2016-11-16 09:02 | Diagnostic Imaging Report ---
Portable chest x-ray HISTORY: Shortness of breath Compared with the prior exam of 11/13/2016, the heart is enlarged. No focal pulmonary processes. IMPRESSION: 1. No focal pulmonary processes 2. Cardiomegaly
--- NOTE | 2016-11-16 12:57 | Internal Medicine Prog Note ---
Internal Medicine Subjective - Subjective Service Date: 11/16/16 (c/o abd. pain and nausea, denies any sob or cough) Patient seen and examined:: with staff Patient is:: awake Internal Medicine Objective - Results Result Diagrams: 11/16/16 06:56 11/16/16 06:56 Recent Labs: Laboratory Last Values WBC 6.2 Th/cmm (4.8-10.8) 11/16/16 06:56 RBC 4.07 Mil/cmm (3.80-5.10) 11/16/16 06:56 Hgb 11.2 gm/dL (11.7-15.5) L 11/16/16 06:56 Hct 33.0 % (35.0-45.0) L 11/16/16 06:56 MCV 81.0 fl (81-100) 11/16/16 06:56 MCH 27.5 pg (27.0-31.0) 11/16/16 06:56 MCHC Differential 34.0 pg (28.0-36.0) 11/16/16 06:56 RDW 14.0 % (11.5-20.0) 11/16/16 06:56 Plt Count 210 Th/cmm (150-400) 11/16/16 06:56 MPV 7.2 fl 11/16/16 06:56 Neutrophils % 71.3 % (40.0-80.0) 11/16/16 06:56 Lymphocytes % 18.1 % (20.0-50.0) L 11/16/16 06:56 Monocytes % 7.2 % (2.0-10.0) 11/16/16 06:56 Eosinophils % 2.7 % (0.0-5.0) 11/16/16 06:56 Basophils % 0.7 % (0.0-2.0) 11/16/16 06:56 PT 9.7 SECONDS (9.5-11.5) 11/14/16 06:15 INR 0.98 (0.5-1.4) 11/14/16 06:15 D-Dimer < 100 ng/mL (100-400) L 11/15/16 06:58 Sodium 137 mEq/L (136-145) 11/16/16 06:56 Potassium 4.1 mEq/L (3.5-5.1) 11/16/16 06:56 Chloride 108 mEq/L (98-107) H 11/16/16 06:56 Carbon Dioxide 25.5 mEq/L (21.0-31.0) 11/16/16 06:56 Anion Gap 7.6 (7.0-16.0) 11/16/16 06:56 BUN 16 mg/dL (7-25) 11/16/16 06:56 Creatinine 0.6 mg/dL (0.6-1.2) 11/16/16 06:56 Est GFR ( Amer) > 60.0 ml/min (>90) 11/16/16 06:56 Est GFR (Non-Af Amer) > 60.0 ml/min 11/16/16 06:56 BUN/Creatinine Ratio 26.7 11/16/16 06:56 Glucose 102 mg/dL (70-105) 11/16/16 06:56 Calcium 9.0 mg/dL (8.6-10.3) 11/16/16 06:56 Magnesium 2.2 mg/dL (1.9-2.7) 11/15/16 06:58 Total Bilirubin 0.3 mg/dL (0.3-1.0) 11/15/16 06:58 AST 12 U/L (13-39) L 11/15/16 06:58 ALT 16 U/L (7-52) 11/15/16 06:58 Alkaline Phosphatase 83 U/L (34-104) 11/15/16 06:58 Ammonia 62 umol/L (16-53) H 11/15/16 06:58 Troponin I < 0.01 ng/mL (0.01-0.05) L 11/13/16 18:25 Total Protein 6.2 gm/dL (6.0-8.3) 11/15/16 06:58 Albumin 3.4 gm/dL (3.7-5.3) L 11/15/16 06:58 Globulin 2.8 gm/dL 11/15/16 06:58 Albumin/Globulin Ratio 1.2 (1.0-1.8) 11/15/16 06:58 Lipase 33 U/L (11-82) 11/13/16 18:25 Vitamin B12 489 pg/mL (211-946) 11/14/16 06:15 Folic Acid 16.8 ng/mL (>3.0) 11/14/16 06:15 TSH 4.28 uIU/ml (0.34-5.60) 11/14/16 06:15 Urine Source RANDOM 11/13/16 18:12 Urine Color YELLOW 11/13/16 18:12 Urine Clarity CLEAR (CLEAR) 11/13/16 18:12 Urine pH 7.0 11/13/16 18:12 Ur Specific [place] 1.020 (1.005-1.030) 11/13/16 18:12 Urine Protein NEGATIVE mg/dL (NEGATIVE) 11/13/16 18:12 Urine Glucose (UA) NEGATIVE mg/dL (NEGATIVE) 11/13/16 18:12 Urine Ketones NEGATIVE mg/dL (NEGATIVE) 11/13/16 18:12 Urine Blood NEGATIVE (NEGATIVE) 11/13/16 18:12 Urine Nitrate NEGATIVE (NEGATIVE) 11/13/16 18:12 Urine Bilirubin NEGATIVE (NEGATIVE) 11/13/16 18:12 Urine Urobilinogen 0.2 E.U./dL (0.2 - 1.0) 11/13/16 18:12 Ur Leukocyte Esterase NEGATIVE (NEGATIVE) 11/13/16 18:12 Urine RBC NONE SEEN /hpf (0-5) 11/13/16 18:12 Urine WBC NONE SEEN /hpf (0-5) 11/13/16 18:12 Ur Epithelial Cells NONE SEEN /lpf (FEW) 11/13/16 18:12 Urine Bacteria NONE SEEN /hpf (NONE SEEN) 11/13/16 18:12 Helicobacter pylori Ab NEGATIVE (NEGATIVE) 11/14/16 18:05 - Physical Exam Vitals and I&O: Vital Signs Temp 98.5 F 11/16/16 12:00 Pulse 98 11/16/16 12:31 Resp 16 11/16/16 12:31 BP 113/60 11/16/16 12:00 Pulse Ox 92 11/16/16 12:31 Intake & Output 11/15/16 11/16/16 11/16/16 18:59 06:59 18:59 Intake Total 1800 400 Balance 1800 400 Intake: Intake, IV Amount 1000 D5-0.45NS 1,000 ml @ 100 1000 mls/hr IV .Q10H [facility] Rx#: [id number] Oral 800 400 Other: # Voids 5 6 # Bowel Movements 0 Active Medications: Current Medications Al Hydrox/Mg Hydrox/Simethicone (Maalox) 30 ml PO Q6HR PRN PRN Reason: Constipation Stop: 01/13/17 00:19 Albuterol Sulfate (Albuterol 2.5mg/3ml Neb Ud) 2.5 mg IH QID [facility] Stop: 01/13/17 08:59 Last Admin: 11/16/16 12:27 Dose: 2.5 mg Clonazepam (Klonopin) 1 mg PO BID [facility] PRN Reason: Protocol Stop: 01/13/17 08:59 Last Admin: 11/16/16 08:10 Dose: 1 mg Heparin Sodium (Porcine) (Heparin) 5,000 units SUBQ Q12HR [facility] Stop: 01/13/17 08:59 Last Admin: 11/16/16 11:02 Dose: Not Given Dextrose/Sodium Chloride (D5-0.45ns) 1,000 mls @ 100 mls/hr IV .Q10H [facility] Stop: 01/13/17 00:29 Last Admin: 11/15/16 21:30 Dose: 100 mls/hr Ibuprofen (Motrin) 600 mg PO Q8HR [facility] Stop: 01/13/17 04:59 Last Admin: 11/16/16 06:09 Dose: 600 mg Ipratropium [place] (Atrovent Neb 0.5mg/2.5ml) 0.5 mg IH QID [facility] Stop: 01/13/17 08:59 Last Admin: 11/16/16 12:27 Dose: 0.5 mg Lactulose (Cephulac) 20 gm PO DAILY PRN PRN Reason: Constipation Stop: 01/13/17 00:16 Magnesium Hydroxide (Milk Of Magnesia) 30 ml PO HS PRN PRN Reason: Constipation Stop: 01/13/17 00:16 Morphine Sulfate (Morphine) 2 mg IVP Q4HR PRN PRN Reason: Pain (Severe) Stop: 01/12/17 21:26 Last Admin: 11/16/16 08:09 Dose: 2 mg Nitroglycerin (Nitrostat) 0.4 mg SL Q5MIN PRN PRN Reason: Chest Pain Stop: 01/13/17 11:55 Last Admin: 11/14/16 12:07 Dose: 0.4 mg Olanzapine (Zyprexa) 10 mg PO HS [facility] PRN Reason: Protocol Stop: 01/13/17 20:59 Last Admin: 11/15/16 20:17 Dose: 10 mg Ondansetron HCl (Zofran) 4 mg IV Q8H PRN PRN Reason: Nausea / Vomiting Stop: 01/13/17 00:19 Last Admin: 11/15/16 22:11 Dose: 4 mg Pantoprazole Sodium (Protonix) 40 mg IVP BID [facility] Stop: 01/13/17 08:59 Last Admin: 11/16/16 08:10 Dose: 40 mg Sertraline HCl (Zoloft) 50 mg PO DAILY [facility] PRN Reason: Protocol Stop: 01/13/17 08:59 Last Admin: 11/16/16 08:10 Dose: 50 mg Sucralfate (Carafate) 1 gm PO BID [facility] Stop: 01/13/17 18:14 Last Admin: 11/16/16 08:10 Dose: 1 gm Zolpidem Tartrate (Ambien) 10 mg PO HS PRN PRN Reason: Insomnia Stop: 01/12/17 23:20 Last Admin: 11/15/16 21:26 Dose: 10 mg General: alert HEENT: NC/AT, PERRLA Neck: Supple Lungs: CTAB Cardiovascular: RRR, Normal S1, Normal S2, without murmur Abdomen: soft non-tender Internal Medicine Assmt/Plan - Assessment Assessment: gastritis intractab;e vomiting abdominal pain anemia gerd obesity gait instability schizoaffective - Plan Plan: ivf for hydration pain mgmt supplemental oxygen
[2016-11-16] MEDS: D5-0.45NS 1,000 ML IV SCH ×3 (17:15→17:16)
--- NOTE | 2016-11-16 20:35 | General Progress Note ---
Subjective - Review of Systems Service Date: 11/16/16 Subjective: STILL SOME ABD PAIN. CHRISTIAN SOME ORAL DIET. Objective - Results Result Diagrams: 11/16/16 06:56 11/16/16 06:56 Recent Labs: Laboratory Last Values WBC 6.2 Th/cmm (4.8-10.8) 11/16/16 06:56 RBC 4.07 Mil/cmm (3.80-5.10) 11/16/16 06:56 Hgb 11.2 gm/dL (11.7-15.5) L 11/16/16 06:56 Hct 33.0 % (35.0-45.0) L 11/16/16 06:56 MCV 81.0 fl (81-100) 11/16/16 06:56 MCH 27.5 pg (27.0-31.0) 11/16/16 06:56 MCHC Differential 34.0 pg (28.0-36.0) 11/16/16 06:56 RDW 14.0 % (11.5-20.0) 11/16/16 06:56 Plt Count 210 Th/cmm (150-400) 11/16/16 06:56 MPV 7.2 fl 11/16/16 06:56 Neutrophils % 71.3 % (40.0-80.0) 11/16/16 06:56 Lymphocytes % 18.1 % (20.0-50.0) L 11/16/16 06:56 Monocytes % 7.2 % (2.0-10.0) 11/16/16 06:56 Eosinophils % 2.7 % (0.0-5.0) 11/16/16 06:56 Basophils % 0.7 % (0.0-2.0) 11/16/16 06:56 PT 9.7 SECONDS (9.5-11.5) 11/14/16 06:15 INR 0.98 (0.5-1.4) 11/14/16 06:15 D-Dimer < 100 ng/mL (100-400) L 11/15/16 06:58 Sodium 137 mEq/L (136-145) 11/16/16 06:56 Potassium 4.1 mEq/L (3.5-5.1) 11/16/16 06:56 Chloride 108 mEq/L (98-107) H 11/16/16 06:56 Carbon Dioxide 25.5 mEq/L (21.0-31.0) 11/16/16 06:56 Anion Gap 7.6 (7.0-16.0) 11/16/16 06:56 BUN 16 mg/dL (7-25) 11/16/16 06:56 Creatinine 0.6 mg/dL (0.6-1.2) 11/16/16 06:56 Est GFR ( Amer) > 60.0 ml/min (>90) 11/16/16 06:56 Est GFR (Non-Af Amer) > 60.0 ml/min 11/16/16 06:56 BUN/Creatinine Ratio 26.7 11/16/16 06:56 Glucose 102 mg/dL (70-105) 11/16/16 06:56 Calcium 9.0 mg/dL (8.6-10.3) 11/16/16 06:56 Magnesium 2.2 mg/dL (1.9-2.7) 11/15/16 06:58 Total Bilirubin 0.3 mg/dL (0.3-1.0) 11/15/16 06:58 AST 12 U/L (13-39) L 11/15/16 06:58 ALT 16 U/L (7-52) 11/15/16 06:58 Alkaline Phosphatase 83 U/L (34-104) 11/15/16 06:58 Ammonia 62 umol/L (16-53) H 11/15/16 06:58 Troponin I < 0.01 ng/mL (0.01-0.05) L 11/13/16 18:25 Total Protein 6.2 gm/dL (6.0-8.3) 11/15/16 06:58 Albumin 3.4 gm/dL (3.7-5.3) L 11/15/16 06:58 Globulin 2.8 gm/dL 11/15/16 06:58 Albumin/Globulin Ratio 1.2 (1.0-1.8) 11/15/16 06:58 Lipase 33 U/L (11-82) 11/13/16 18:25 Vitamin B12 489 pg/mL (211-946) 11/14/16 06:15 Folic Acid 16.8 ng/mL (>3.0) 11/14/16 06:15 TSH 4.28 uIU/ml (0.34-5.60) 11/14/16 06:15 Urine Source RANDOM 11/13/16 18:12 Urine Color YELLOW 11/13/16 18:12 Urine Clarity CLEAR (CLEAR) 11/13/16 18:12 Urine pH 7.0 11/13/16 18:12 Ur Specific [place] 1.020 (1.005-1.030) 11/13/16 18:12 Urine Protein NEGATIVE mg/dL (NEGATIVE) 11/13/16 18:12 Urine Glucose (UA) NEGATIVE mg/dL (NEGATIVE) 11/13/16 18:12 Urine Ketones NEGATIVE mg/dL (NEGATIVE) 11/13/16 18:12 Urine Blood NEGATIVE (NEGATIVE) 11/13/16 18:12 Urine Nitrate NEGATIVE (NEGATIVE) 11/13/16 18:12 Urine Bilirubin NEGATIVE (NEGATIVE) 11/13/16 18:12 Urine Urobilinogen 0.2 E.U./dL (0.2 - 1.0) 11/13/16 18:12 Ur Leukocyte Esterase NEGATIVE (NEGATIVE) 11/13/16 18:12 Urine RBC NONE SEEN /hpf (0-5) 11/13/16 18:12 Urine WBC NONE SEEN /hpf (0-5) 11/13/16 18:12 Ur Epithelial Cells NONE SEEN /lpf (FEW) 11/13/16 18:12 Urine Bacteria NONE SEEN /hpf (NONE SEEN) 11/13/16 18:12 Helicobacter pylori Ab NEGATIVE (NEGATIVE) 11/14/16 18:05 - Physical Exam Vitals and I&O: Vital Signs Temp 99.6 F 11/16/16 20:00 Pulse 102 11/16/16 20:00 Resp 20 11/16/16 20:00 BP 105/68 11/16/16 20:00 Pulse Ox 94 11/16/16 20:00 Intake & Output 11/16/16 11/16/16 11/17/16 06:59 18:59 06:59 Intake Total 400 2080 Balance 400 2080 Intake: Intake, IV Amount 1000 D5-0.45NS 1,000 ml @ 100 1000 mls/hr IV .Q10H [facility] Rx#: [id number] Oral 400 1080 Other: # Voids 6 4 # Bowel Movements 0 0 Active Medications: Current Medications Al Hydrox/Mg Hydrox/Simethicone (Maalox) 30 ml PO Q6HR PRN PRN Reason: Constipation Stop: 01/13/17 00:19 Albuterol Sulfate (Albuterol 2.5mg/3ml Neb Ud) 2.5 mg IH QID [facility] Stop: 01/13/17 08:59 Last Admin: 11/16/16 20:23 Dose: 2.5 mg Clonazepam (Klonopin) 1 mg PO BID [facility] PRN Reason: Protocol Stop: 01/13/17 08:59 Last Admin: 11/16/16 17:05 Dose: 1 mg Heparin Sodium (Porcine) (Heparin) 5,000 units SUBQ Q12HR [facility] Stop: 01/13/17 08:59 Last Admin: 11/16/16 11:02 Dose: Not Given Dextrose/Sodium Chloride (D5-0.45ns) 1,000 mls @ 100 mls/hr IV .Q10H [facility] Stop: 01/13/17 00:29 Last Admin: 11/16/16 17:16 Dose: 100 mls/hr Ibuprofen (Motrin) 600 mg PO Q8HR [facility] Stop: 01/13/17 04:59 Last Admin: 11/16/16 13:38 Dose: Not Given Ipratropium [place] (Atrovent Neb 0.5mg/2.5ml) 0.5 mg IH QID [facility] Stop: 01/13/17 08:59 Last Admin: 11/16/16 20:23 Dose: 0.5 mg Lactulose (Cephulac) 20 gm PO DAILY PRN PRN Reason: Constipation Stop: 01/13/17 00:16 Magnesium Hydroxide (Milk Of Magnesia) 30 ml PO HS PRN PRN Reason: Constipation Stop: 01/13/17 00:16 Morphine Sulfate (Morphine) 2 mg IVP Q4HR PRN PRN Reason: Pain (Severe) Stop: 01/12/17 21:26 Last Admin: 11/16/16 13:33 Dose: 2 mg Nitroglycerin (Nitrostat) 0.4 mg SL Q5MIN PRN PRN Reason: Chest Pain Stop: 01/13/17 11:55 Last Admin: 11/14/16 12:07 Dose: 0.4 mg Olanzapine (Zyprexa) 10 mg PO HS [facility] PRN Reason: Protocol Stop: 01/13/17 20:59 Last Admin: 11/15/16 20:17 Dose: 10 mg Ondansetron HCl (Zofran) 4 mg IV Q8H PRN PRN Reason: Nausea / Vomiting Stop: 01/13/17 00:19 Last Admin: 11/16/16 13:32 Dose: 4 mg Pantoprazole Sodium (Protonix) 40 mg IVP BID [facility] Stop: 01/13/17 08:59 Last Admin: 11/16/16 17:04 Dose: 40 mg Sertraline HCl (Zoloft) 50 mg PO DAILY [facility] PRN Reason: Protocol Stop: 01/13/17 08:59 Last Admin: 11/16/16 08:10 Dose: 50 mg Sucralfate (Carafate) 1 gm PO BID [facility] Stop: 01/13/17 18:14 Last Admin: 11/16/16 17:05 Dose: 1 gm Zolpidem Tartrate (Ambien) 10 mg PO HS PRN PRN Reason: Insomnia Stop: 01/12/17 23:20 Last Admin: 11/15/16 21:26 Dose: 10 mg General: Alert HEENT: Atraumatic Neck: Supple Cardiovascular: Regular rate Lungs: Clear to auscultation Abdomen: Bowel sounds, Soft, Tender Assessment/Plan - Assessment Assessment: 1. ABD PAIN - R/O GASTRITIS VS. IBS VS. OTHER. 2. EGD SHOWED BILE GASTROPATHY. 3. S/P SYL. 4. OBESITY. - Plan Plan: 1. PROTONIX. 2. CARAFATE. 3. F/U BX RESULTS. 4. DIET CHRISTIAN.
[2016-11-16] MEDS ORDERED: D5-0.45NS 1,000 ML IV SCH (23:27)
[2016-11-17 06:59] LABS: % BASOPHILS 0.6 % (0.0-2.0); % EOSINOPHILS 2.1 % (0.0-5.0); % LYMPHOCYTES 18.9 % (20.0-50.0); % MONOCYTES 8.2 % (2.0-10.0); % NEUTROPHILS 70.2 % (40.0-80.0); HEMATOCRIT 31.6 % (35.0-45.0); HEMOGLOBIN 10.9 gm/dL (11.7-15.5); MEAN CORPUSCULAR HEMOGLOBIN 27.2 pg (27.0-31.0); MEAN CORPUSCULAR HGB CONC 34.4 pg (28.0-36.0); MEAN PLATELET VOLUME 7.8 fl; NEUTROPHILE ABSOLUTE 4.6 Th/cmm (1.8-8.0); PLATELET COUNT 213 Th/cmm (150-400); RED CELL DISTRIBUTION WIDTH 14.7 % (11.5-20.0); WHITE BLOOD COUNT 6.4 Th/cmm (4.8-10.8)
[2016-11-17] MEDS: Albuterol Nebulizer 2.5mg/3mL IH SCH ×3 (07:01→15:30)
[2016-11-17] MEDS: Ipratropium Neb 0.5 mg/2.5 mL UD IH SCH ×3 (07:01→15:31)
[2016-11-17 07:02] LABS: ANION GAP 8.3 (7.0-16.0); BUN - UREA NITROGEN 17 mg/dL (7-25); BUN/CREATININE RATIO 21.3; CALCIUM SERUM 8.9 mg/dL (8.6-10.3); CARBON DIOXIDE 29.6 mEq/L (21.0-31.0); CHLORIDE 104 mEq/L (98-107); CREATININE - SERUM 0.8 mg/dL (0.6-1.2); GLUCOSE 93 mg/dL (70-105); POTASSIUM SERUM 3.9 mEq/L (3.5-5.1); SODIUM SERUM 138 mEq/L (136-145)
[2016-11-17] MEDS: Morphine Sulfate 2 mg/mL 1mL Syr IVP PRN ×2 (10:01→14:20)
--- NOTE | 2016-11-17 12:13 | Internal Medicine Prog Note ---
Internal Medicine Subjective - Subjective Service Date: 11/17/16 Patient seen and examined:: with staff Patient is:: awake Per staff patient is:: no adverse event Internal Medicine Objective - Results Result Diagrams: 11/17/16 06:00 11/17/16 06:00 Recent Labs: Laboratory Last Values WBC 6.4 Th/cmm (4.8-10.8) 11/17/16 06:00 RBC 4.00 Mil/cmm (3.80-5.10) 11/17/16 06:00 Hgb 10.9 gm/dL (11.7-15.5) L 11/17/16 06:00 Hct 31.6 % (35.0-45.0) L 11/17/16 06:00 MCV 79.0 fl (81-100) L 11/17/16 06:00 MCH 27.2 pg (27.0-31.0) 11/17/16 06:00 MCHC Differential 34.4 pg (28.0-36.0) 11/17/16 06:00 RDW 14.7 % (11.5-20.0) 11/17/16 06:00 Plt Count 213 Th/cmm (150-400) 11/17/16 06:00 MPV 7.8 fl 11/17/16 06:00 Neutrophils % 70.2 % (40.0-80.0) 11/17/16 06:00 Lymphocytes % 18.9 % (20.0-50.0) L 11/17/16 06:00 Monocytes % 8.2 % (2.0-10.0) 11/17/16 06:00 Eosinophils % 2.1 % (0.0-5.0) 11/17/16 06:00 Basophils % 0.6 % (0.0-2.0) 11/17/16 06:00 PT 9.7 SECONDS (9.5-11.5) 11/14/16 06:15 INR 0.98 (0.5-1.4) 11/14/16 06:15 D-Dimer < 100 ng/mL (100-400) L 11/15/16 06:58 Sodium 138 mEq/L (136-145) 11/17/16 06:00 Potassium 3.9 mEq/L (3.5-5.1) 11/17/16 06:00 Chloride 104 mEq/L (98-107) 11/17/16 06:00 Carbon Dioxide 29.6 mEq/L (21.0-31.0) 11/17/16 06:00 Anion Gap 8.3 (7.0-16.0) 11/17/16 06:00 BUN 17 mg/dL (7-25) 11/17/16 06:00 Creatinine 0.8 mg/dL (0.6-1.2) 11/17/16 06:00 Est GFR ( Amer) > 60.0 ml/min (>90) 11/17/16 06:00 Est GFR (Non-Af Amer) > 60.0 ml/min 11/17/16 06:00 BUN/Creatinine Ratio 21.3 11/17/16 06:00 Glucose 93 mg/dL (70-105) 11/17/16 06:00 Calcium 8.9 mg/dL (8.6-10.3) 11/17/16 06:00 Magnesium 2.2 mg/dL (1.9-2.7) 11/15/16 06:58 Total Bilirubin 0.3 mg/dL (0.3-1.0) 11/15/16 06:58 AST 12 U/L (13-39) L 11/15/16 06:58 ALT 16 U/L (7-52) 11/15/16 06:58 Alkaline Phosphatase 83 U/L (34-104) 11/15/16 06:58 Ammonia 62 umol/L (16-53) H 11/15/16 06:58 Troponin I < 0.01 ng/mL (0.01-0.05) L 11/13/16 18:25 Total Protein 6.2 gm/dL (6.0-8.3) 11/15/16 06:58 Albumin 3.4 gm/dL (3.7-5.3) L 11/15/16 06:58 Globulin 2.8 gm/dL 11/15/16 06:58 Albumin/Globulin Ratio 1.2 (1.0-1.8) 11/15/16 06:58 Lipase 33 U/L (11-82) 11/13/16 18:25 Vitamin B12 489 pg/mL (211-946) 11/14/16 06:15 Folic Acid 16.8 ng/mL (>3.0) 11/14/16 06:15 TSH 4.28 uIU/ml (0.34-5.60) 11/14/16 06:15 Urine Source RANDOM 11/13/16 18:12 Urine Color YELLOW 11/13/16 18:12 Urine Clarity CLEAR (CLEAR) 11/13/16 18:12 Urine pH 7.0 11/13/16 18:12 Ur Specific [place] 1.020 (1.005-1.030) 11/13/16 18:12 Urine Protein NEGATIVE mg/dL (NEGATIVE) 11/13/16 18:12 Urine Glucose (UA) NEGATIVE mg/dL (NEGATIVE) 11/13/16 18:12 Urine Ketones NEGATIVE mg/dL (NEGATIVE) 11/13/16 18:12 Urine Blood NEGATIVE (NEGATIVE) 11/13/16 18:12 Urine Nitrate NEGATIVE (NEGATIVE) 11/13/16 18:12 Urine Bilirubin NEGATIVE (NEGATIVE) 11/13/16 18:12 Urine Urobilinogen 0.2 E.U./dL (0.2 - 1.0) 11/13/16 18:12 Ur Leukocyte Esterase NEGATIVE (NEGATIVE) 11/13/16 18:12 Urine RBC NONE SEEN /hpf (0-5) 11/13/16 18:12 Urine WBC NONE SEEN /hpf (0-5) 11/13/16 18:12 Ur Epithelial Cells NONE SEEN /lpf (FEW) 11/13/16 18:12 Urine Bacteria NONE SEEN /hpf (NONE SEEN) 11/13/16 18:12 Helicobacter pylori Ab NEGATIVE (NEGATIVE) 11/14/16 18:05 - Physical Exam Vitals and I&O: Vital Signs Temp 99.1 F 11/17/16 00:00 Pulse 80 11/17/16 11:05 Resp 18 11/17/16 11:05 BP 121/71 11/17/16 00:00 Pulse Ox 95 11/17/16 11:05 Intake & Output 11/16/16 11/17/16 11/17/16 18:59 06:59 18:59 Intake Total 2079 Balance 2079 Intake: Intake, IV Amount 1000 D5-0.45NS 1,000 ml @ 100 1000 mls/hr IV .Q10H BRENDA Rx#: [id number] Oral 1080 Other: # Voids 4 # Bowel Movements 0 Active Medications: Current Medications Al Hydrox/Mg Hydrox/Simethicone (Maalox) 30 ml PO Q6HR PRN PRN Reason: Constipation Stop: 01/13/17 00:19 Albuterol Sulfate (Albuterol 2.5mg/3ml Neb Ud) 2.5 mg IH QID [facility] Stop: 01/13/17 08:59 Last Admin: 11/17/16 11:03 Dose: 2.5 mg Clonazepam (Klonopin) 1 mg PO BID BRENDA PRN Reason: Protocol Stop: 01/13/17 08:59 Last Admin: 11/16/16 17:05 Dose: 1 mg Heparin Sodium (Porcine) (Heparin) 5,000 units SUBQ Q12HR [facility] Stop: 01/13/17 08:59 Last Admin: 11/17/16 10:35 Dose: 5,000 units Dextrose/Sodium Chloride (D5-0.45ns) 1,000 mls @ 50 mls/hr IV .Q20H [facility] Stop: 01/15/17 23:26 Ibuprofen (Motrin) 600 mg PO Q8HR [facility] Stop: 01/13/17 04:59 Last Admin: 11/17/16 05:41 Dose: 600 mg Ipratropium [place] (Atrovent Neb 0.5mg/2.5ml) 0.5 mg IH QID [facility] Stop: 01/13/17 08:59 Last Admin: 11/17/16 11:03 Dose: 0.5 mg Lactulose (Cephulac) 20 gm PO DAILY PRN PRN Reason: Constipation Stop: 01/13/17 00:16 Magnesium Hydroxide (Milk Of Magnesia) 30 ml PO HS PRN PRN Reason: Constipation Stop: 01/13/17 00:16 Morphine Sulfate (Morphine) 2 mg IVP Q4HR PRN PRN Reason: Pain (Severe) Stop: 01/12/17 21:26 Last Admin: 11/17/16 10:01 Dose: 2 mg Nitroglycerin (Nitrostat) 0.4 mg SL Q5MIN PRN PRN Reason: Chest Pain Stop: 01/13/17 11:55 Last Admin: 11/14/16 12:07 Dose: 0.4 mg Olanzapine (Zyprexa) 10 mg PO HS BRENDA PRN Reason: Protocol Stop: 01/13/17 20:59 Last Admin: 11/16/16 21:40 Dose: 10 mg Ondansetron HCl (Zofran) 4 mg IV Q8H PRN PRN Reason: Nausea / Vomiting Stop: 01/13/17 00:19 Last Admin: 11/16/16 23:13 Dose: 4 mg Pantoprazole Sodium (Protonix) 40 mg IVP BID [facility] Stop: 01/13/17 08:59 Last Admin: 11/16/16 17:04 Dose: 40 mg Sertraline HCl (Zoloft) 50 mg PO DAILY BRENDA PRN Reason: Protocol Stop: 01/13/17 08:59 Last Admin: 11/17/16 10:36 Dose: 50 mg Sucralfate (Carafate) 1 gm PO BID [facility] Stop: 01/13/17 18:14 Last Admin: 11/17/16 10:36 Dose: 1 gm Zolpidem Tartrate (Ambien) 10 mg PO HS PRN PRN Reason: Insomnia Stop: 01/12/17 23:20 Last Admin: 11/16/16 21:40 Dose: 10 mg General: alert HEENT: NC/AT, PERRLA Neck: Supple Lungs: CTAB Cardiovascular: RRR, Normal S1, Normal S2, without murmur Abdomen: soft non-tender, positive bowel sound Extremities: clear Neurological: no change - Procedures Procedures: Procedures Procedure Code Date EGD BIOPSY SINGLE/MULTIPLE 06294 11/13/16 EXCISION OF DUODENUM, ENDO, DIAGN [id number] 11/13/16 EXCISION OF STOMACH, ENDO, DIAGN [id number] 11/13/16 Internal Medicine Assmt/Plan - Assessment Assessment: gastritis intractab;e vomiting abdominal pain anemia gerd obesity gait instability schizoaffective - Plan Plan: ivf for hydration prn zofran pain mgmt supplemental oxygen
[2016-11-17] MEDS ORDERED: Pantoprazole 40 mg EC Tab PO SCH (17:00)
--- NOTE | 2016-11-17 20:35 | General Progress Note ---
Subjective - Review of Systems Service Date: 11/17/16 Subjective: IMPROVED ABD PAIN. [facility]RISTIAN ORAL DIET. Objective - Results Result Diagrams: 11/17/16 06:00 11/17/16 06:00 Recent Labs: Laboratory Last Values WBC 6.4 Th/cmm (4.8-10.8) 11/17/16 06:00 RBC 4.00 Mil/cmm (3.80-5.10) 11/17/16 06:00 Hgb 10.9 gm/dL (11.7-15.5) L 11/17/16 06:00 Hct 31.6 % (35.0-45.0) L 11/17/16 06:00 MCV 79.0 fl (81-100) L 11/17/16 06:00 MCH 27.2 pg (27.0-31.0) 11/17/16 06:00 MCHC Differential 34.4 pg (28.0-36.0) 11/17/16 06:00 RDW 14.7 % (11.5-20.0) 11/17/16 06:00 Plt Count 213 Th/cmm (150-400) 11/17/16 06:00 MPV 7.8 fl 11/17/16 06:00 Neutrophils % 70.2 % (40.0-80.0) 11/17/16 06:00 Lymphocytes % 18.9 % (20.0-50.0) L 11/17/16 06:00 Monocytes % 8.2 % (2.0-10.0) 11/17/16 06:00 Eosinophils % 2.1 % (0.0-5.0) 11/17/16 06:00 Basophils % 0.6 % (0.0-2.0) 11/17/16 06:00 PT 9.7 SECONDS (9.5-11.5) 11/14/16 06:15 INR 0.98 (0.5-1.4) 11/14/16 06:15 D-Dimer < 100 ng/mL (100-400) L 11/15/16 06:58 Sodium 138 mEq/L (136-145) 11/17/16 06:00 Potassium 3.9 mEq/L (3.5-5.1) 11/17/16 06:00 Chloride 104 mEq/L (98-107) 11/17/16 06:00 Carbon Dioxide 29.6 mEq/L (21.0-31.0) 11/17/16 06:00 Anion Gap 8.3 (7.0-16.0) 11/17/16 06:00 BUN 17 mg/dL (7-25) 11/17/16 06:00 Creatinine 0.8 mg/dL (0.6-1.2) 11/17/16 06:00 Est GFR ( Amer) > 60.0 ml/min (>90) 11/17/16 06:00 Est GFR (Non-Af Amer) > 60.0 ml/min 11/17/16 06:00 BUN/Creatinine Ratio 21.3 11/17/16 06:00 Glucose 93 mg/dL (70-105) 11/17/16 06:00 Calcium 8.9 mg/dL (8.6-10.3) 11/17/16 06:00 Magnesium 2.2 mg/dL (1.9-2.7) 11/15/16 06:58 Total Bilirubin 0.3 mg/dL (0.3-1.0) 11/15/16 06:58 AST 12 U/L (13-39) L 11/15/16 06:58 ALT 16 U/L (7-52) 11/15/16 06:58 Alkaline Phosphatase 83 U/L (34-104) 11/15/16 06:58 Ammonia 62 umol/L (16-53) H 11/15/16 06:58 Troponin I < 0.01 ng/mL (0.01-0.05) L 11/13/16 18:25 Total Protein 6.2 gm/dL (6.0-8.3) 11/15/16 06:58 Albumin 3.4 gm/dL (3.7-5.3) L 11/15/16 06:58 Globulin 2.8 gm/dL 11/15/16 06:58 Albumin/Globulin Ratio 1.2 (1.0-1.8) 11/15/16 06:58 Lipase 33 U/L (11-82) 11/13/16 18:25 Vitamin B12 489 pg/mL (211-946) 11/14/16 06:15 Folic Acid 16.8 ng/mL (>3.0) 11/14/16 06:15 TSH 4.28 uIU/ml (0.34-5.60) 11/14/16 06:15 Urine Source RANDOM 11/13/16 18:12 Urine Color YELLOW 11/13/16 18:12 Urine Clarity CLEAR (CLEAR) 11/13/16 18:12 Urine pH 7.0 11/13/16 18:12 Ur Specific [place] 1.020 (1.005-1.030) 11/13/16 18:12 Urine Protein NEGATIVE mg/dL (NEGATIVE) 11/13/16 18:12 Urine Glucose (UA) NEGATIVE mg/dL (NEGATIVE) 11/13/16 18:12 Urine Ketones NEGATIVE mg/dL (NEGATIVE) 11/13/16 18:12 Urine Blood NEGATIVE (NEGATIVE) 11/13/16 18:12 Urine Nitrate NEGATIVE (NEGATIVE) 11/13/16 18:12 Urine Bilirubin NEGATIVE (NEGATIVE) 11/13/16 18:12 Urine Urobilinogen 0.2 E.U./dL (0.2 - 1.0) 11/13/16 18:12 Ur Leukocyte Esterase NEGATIVE (NEGATIVE) 11/13/16 18:12 Urine RBC NONE SEEN /hpf (0-5) 11/13/16 18:12 Urine WBC NONE SEEN /hpf (0-5) 11/13/16 18:12 Ur Epithelial Cells NONE SEEN /lpf (FEW) 11/13/16 18:12 Urine Bacteria NONE SEEN /hpf (NONE SEEN) 11/13/16 18:12 Helicobacter pylori Ab NEGATIVE (NEGATIVE) 11/14/16 18:05 - Physical Exam Vitals and I&O: Vital Signs Temp 99.1 F 11/17/16 16:17 Pulse 84 11/17/16 17:05 Resp 20 11/17/16 17:05 BP 118/68 11/17/16 17:05 Pulse Ox 99 11/17/16 17:05 Intake & Output 11/17/16 11/17/16 11/18/16 06:59 18:59 06:59 Intake Total 1200 Output Total 0 Balance 1200 Intake: Oral 1200 Output: Stool 0 Other: # Voids 5 Active Medications: Current Medications Al Hydrox/Mg Hydrox/Simethicone (Maalox) 30 ml PO Q6HR PRN PRN Reason: Constipation Stop: 01/13/17 00:19 Albuterol Sulfate (Albuterol 2.5mg/3ml Neb Ud) 2.5 mg IH QID [facility]EN[facility] Stop: 01/13/17 08:59 Last Admin: 11/17/16 15:30 Dose: 2.5 mg Clonazepam (Klonopin) 1 mg PO BID BRENDA PRN Reason: Protocol Stop: 01/13/17 08:59 Last Admin: 11/16/16 17:05 Dose: 1 mg Ibuprofen (Motrin) 600 mg PO Q8HR PRN PRN Reason: Pain (Severe) Stop: 01/13/17 04:59 Ipratropium [place] (Atrovent Neb 0.5mg/2.5ml) 0.5 mg IH QID [facility]ENDA Stop: 01/13/17 08:59 Last Admin: 11/17/16 15:31 Dose: 0.5 mg Lactulose (Cephulac) 20 gm PO DAILY PRN PRN Reason: Constipation Stop: 01/13/17 00:16 Magnesium Hydroxide (Milk Of Magnesia) 30 ml PO HS PRN PRN Reason: Constipation Stop: 01/13/17 00:16 Nitroglycerin (Nitrostat) 0.4 mg SL Q5MIN PRN PRN Reason: Chest Pain Stop: 01/13/17 11:55 Last Admin: 11/14/16 12:07 Dose: 0.4 mg Olanzapine (Zyprexa) 10 mg PO HS BRENDA PRN Reason: Protocol Stop: 01/13/17 20:59 Last Admin: 11/16/16 21:40 Dose: 10 mg Ondansetron HCl (Zofran) 4 mg IV Q8H PRN PRN Reason: Nausea / Vomiting Stop: 01/13/17 00:19 Last Admin: 11/16/16 23:13 Dose: 4 mg Pantoprazole Sodium (Protonix) 40 mg PO BID BRENDA Stop: 01/16/17 16:59 Sertraline HCl (Zoloft) 50 mg PO DAILY BRENDA PRN Reason: Protocol Stop: 01/13/17 08:59 Last Admin: 11/17/16 10:36 Dose: 50 mg Sucralfate (Carafate) 1 gm PO BID [facility]ENDA Stop: 01/13/17 18:14 Last Admin: 11/17/16 10:36 Dose: 1 gm Zolpidem Tartrate (Ambien) 10 mg PO HS PRN PRN Reason: Insomnia Stop: 01/12/17 23:20 Last Admin: 11/16/16 21:40 Dose: 10 mg General: Alert HEENT: Atraumatic Neck: Supple Cardiovascular: Regular rate Lungs: Clear to auscultation Abdomen: Bowel sounds, Soft, no Tender - Procedures Procedures: Procedures Procedure Code Date EGD BIOPSY SINGLE/MULTIPLE 72622 11/13/16 EXCISION OF DUODENUM, ENDO, DIAGN [id number] 11/13/16 EXCISION OF STOMACH, ENDO, DIAGN [id number] 11/13/16 Assessment/Plan - Assessment Assessment: 1. ABD PAIN - R/O GASTRITIS VS. IBS VS. OTHER. 2. EGD SHOWED BILE GASTROPATHY. 3. S/P SYL. 4. OBESITY. - Plan Plan: 1. PROTONIX. 2. CARAFATE. 3. F/U BX RESULTS. 4. DIET CHRISTIAN. GI LOZANO STABLE.
[2016-11-18 05:32] LABS: FOLIC ACID 13.4 ng/mL (>3.0)
--- NOTE | 2016-11-18 12:09 | Pathology Report ---
[id number] Collection date: 11/14/2016 Surgeon: Dr. César Swartz Specimen Description: 1: Duodenal biopsy. 2: Antrum biopsy. Part Gross Description: Part I: Received in formalin are two allen soft tissue fragments measuring from 0.1 to 0.2 cm in greatest dimension. Totally submitted in one cassette labeled A. Gross Description: Part II: Received in formalin is a single [place]en soft tissue fragment measuring 0.1 cm in greatest dimension. Totally submitted in one cassette labeled B. Microscopic Description: Part I: The histologic sections show duodenal mucosa with intact intestinal villi. Diagnosis: Part I: No evidence for celiac disease / sprue. Microscopic Description: Part II: The histologic sections show gastric mucosa with chronic inflammation present consisting of lymphocytes and plasma cells. The Giemsa stain shows no evidence for Helicobacter pylori. Diagnosis: Part II: 1. Chronic gastritis, antrum biopsy. 2. The Giemsa stain is negative for Helicobacter pylori. [facility]# [id number] [facility]
--- NOTE | 2017-01-11 07:25 | Discharge Summary ---
Dictated for Dr. Bandar Cormier. FINAL DIAGNOSES: Intractable vomiting, abdominal pain, anemia, gastroesophageal reflux disease, obesity, gait instability, schizoaffective disorder, hypoalbuminemia, and hypokalemia. HISTORY OF PRESENT ILLNESS: This is a 66-year-old female with a history of GERD, obesity, anemia, depression, and psych disorder, who was admitted from the nursing facility secondary to abdominal pain started about 3 days ago, better about 2 months ago, worse in the last 3 days. The patient also on the way had some vomiting. The patient had diarrhea in the ER and then admitted for further management. PHYSICAL EXAMINATION: GENERAL: The patient is well developed, well nourished, in no acute distress. VITAL SIGNS: Stable. HEENT: Normocephalic and atraumatic. NECK: Supple. No mass. LUNGS: Clear bilaterally. CARDIOVASCULAR: Regular rate and rhythm. ABDOMEN: Soft and nontender. HOSPITAL COURSE: During the hospital stay, the patient was admitted to the med/surg unit. The patient had a CT of the abdomen and pelvis, and the impression is no acute abnormalities, mildly distended stool-filled ascending colon. On 11/14/2016, the patient had an EGD done with biopsy. POSTOP DIAGNOSES: Mild antral gastritis and normal duodenum status post biopsy . The patient was kept on IV fluids for hydration and also the patient's potassium was replaced as well. The patient was stable for discharge. CONDITION UPON DISCHARGE: Fair. DISPOSITION: Inge Ahuja JOB# [id number]
== END 2016-11-17 18:10 | DRG 392 ==
LOC: ER 17:25 → TELE 21:46 → MSI 11-16 17:01
PROVIDERS: ADMIT Internal Medicine; ATTEND Internal Medicine
PROC: 0DB68ZX Excision of Stomach, Via Natural or Artificial Opening Endoscopic, Diagnostic (ICD-10-PCS; principal; 2016-11-14)
PROC: 0DB98ZX Excision of Duodenum, Via Natural or Artificial Opening Endoscopic, Diagnostic (ICD-10-PCS; 2016-11-14)
DX: K29.70 Gastritis, unspecified, without bleeding (principal); F25.9 Schizoaffective disorder, unspecified; E87.6 Hypokalemia; D64.9 Anemia, unspecified; K21.9 Gastro-esophageal reflux disease without esophagitis; E66.9 Obesity, unspecified; G89.4 Chronic pain syndrome; K58.9 Irritable bowel syndrome, unspecified; R07.89 Other chest pain; R26.9 Unspecified abnormalities of gait and mobility; K31.9 Disease of stomach and duodenum, unspecified; Z88.6 Allergy status to analgesic agent; Z88.0 Allergy status to penicillin; Z88.8 Allergy status to other drugs, medicaments and biological substances; Z82.49 Family history of ischemic heart disease and other diseases of the circulatory system; Z90.710 Acquired absence of both cervix and uterus; Z68.30 Body mass index [BMI] 30.0-30.9, adult
CPT/HCPCS: 36415-UA; 71010-TC; 80048-TC; 80053-TC; 81001-TC; 82140-TC; 82607-90; 82746-90; 83690-TC; 83735-TC; 84443-TC; 84484-TC; 85025-TC; 85379-TC; 85610-TC; 87338-TC; 88305-90; 88312-90; 90732; 90779; 93005; 94760; 96374; C9113; J1644; J2270; J2405; J2704; J7613; Z7512; Z7610